=== PATIENT | female | born 1950 | race Caucasian/White ===

== ENCOUNTER 2024-12-04 07:57 | Observation (INO) ==
[~2024-12-04 07:57] MED LIST: KETAMINE HCL ONE; ULTANE GAS IN ONE; XYLOCAINE 2 % (PLAIN) ONE
[2024-12-04] MEDS: NOZIN NASAL SANITIZER TP ONE (08:13)
[2024-12-04] MEDS: LR 1,000 ML IV 1,000 ML IV ONE ×2 (08:13→10:42)
[2024-12-04] MEDS: NS 100 ML IV 100 ML ONE (09:25)
[2024-12-04] MEDS: ANCEF VIAL 1 GRAM ONE (09:25)
[2024-12-04] MEDS: LR 1,000 ML IV 1,300 ML IV PRN (09:30)
[2024-12-04] MEDS: VERSED IVP PRN (09:35)
[2024-12-04] MEDS: ANCEF VIAL 1 GRAM IV PRN (09:37)
[2024-12-04] MEDS: ZOFRAN INJ 4 MG VIAL IVP PRN (09:38)
[2024-12-04] MEDS: PEPCID 20 MG VIAL IVP PRN (09:40)
[2024-12-04] MEDS: REGLAN INJ 10 MG VIAL IVP PRN (09:42)
[2024-12-04] MEDS: FENTANYL VIAL INJ 100 mcg IVP PRN (09:45)
[2024-12-04] MEDS ORDERED: XYLOCAINE 2 % (PLAIN) PRN (09:46)
[2024-12-04] MEDS: PRECEDEX INJ VIAL IVP PRN (09:47)
[2024-12-04] MEDS: OFIRMEV IV 1000 MG VIAL 1,000 MG/100 ML VIAL IV PRN (09:58)
[2024-12-04] MEDS: KETAMINE HCL IV PRN (10:14)
[2024-12-04] MEDS: DIPRIVAN VIAL 200 ML IVP PRN (10:17)
[2024-12-04] MEDS ORDERED: BARHEMSYS INJ IVP PRN (10:21)
[2024-12-04] MEDS ORDERED: ZOFRAN INJ 4 MG VIAL IVP PRN (10:21)
[2024-12-04] MEDS ORDERED: BENADRYL INJ 50 MG VIAL IVP PRN (10:21)
[2024-12-04] MEDS: EPHEDRINE SULFATE INJ IVP PRN (10:28)
[2024-12-04] MEDS: ZEMURON 100 MG VIAL IVP PRN (10:31)
[2024-12-04] MEDS: BRIDION IVP PRN (11:13)
[2024-12-04] MEDS: ROBINUL IVP PRN (11:14)
[2024-12-04] MEDS: BACTROBAN TOPICAL OINT ONE (11:18)
[2024-12-04] MEDS: DECADRON INJ IVP PRN (11:22)
[2024-12-04] MEDS: DILAUDID INJ ONE (12:06)
[2024-12-04] MEDS: DILAUDID INJ IVP PRN (12:08)
[2024-12-04] MEDS ORDERED: TORADOL 30 MG VIAL IVP PRN (12:52)
[2024-12-04] MEDS ORDERED: NORCO 5/325 MG TAB PO PRN (12:52)
[2024-12-04] MEDS: D5 1/2 NS 1,000 ML 1,000 ML IV SCH (13:00)
[2024-12-04] MEDS: D5 1/2 NS 1,000 ML 1,000 ML IV ONE (13:07)
[2024-12-04 13:46] VITALS: BMI 37.2
[2024-12-04] MEDS: DIPRIVAN VIAL 20 ML ONE (14:54)
[2024-12-04] MEDS: BRIDION ONE (14:54)
[2024-12-04] MEDS: DECADRON INJ ONE (14:54)
[2024-12-04] MEDS: REGLAN INJ 10 MG VIAL ONE (14:55)
[2024-12-04] MEDS: PEPCID 20 MG VIAL ONE (14:55)
[2024-12-04] MEDS: OFIRMEV IV 1000 MG VIAL 1,000 MG/100 ML VIAL IV ONE (14:55)
[2024-12-04] MEDS: ZOFRAN INJ 4 MG VIAL ONE (14:55)
[2024-12-04] MEDS: PRECEDEX INJ VIAL ONE (14:55)
[2024-12-04] MEDS: ZEMURON 100 MG VIAL ONE (14:55)
[2024-12-04] MEDS: VERSED ONE (14:56)
[2024-12-04] MEDS: EPHEDRINE SULFATE INJ ONE (14:56)
[2024-12-04] MEDS: ROBINUL ONE (14:56)
[2024-12-04] MEDS: FENTANYL VIAL INJ 100 mcg ONE (14:56)
[2024-12-05] MEDS: ZOFRAN INJ 4 MG VIAL IVP PRN (03:14)
[2024-12-05 03:43] VITALS: RESP 18
[2024-12-05 08:14] VITALS: BP 136/72; PULSE 78; TEMP 97.3; O2SAT 96
[2024-12-05 08:20] LABS: BASOPHILS % (AUTO) 0.5 % (0.2-1.0); HEMATOCRIT 33.3 % (36.0-47.0); HEMOGLOBIN 11.6 g/dL (12.0-16.0); LYMPHOCYTES # (AUTO) 1.8 X10^3/uL (1.3-2.9); LYMPHOCYTES % (AUTO) 18.8 % (21.0-51.0); MEAN CORPUSCULAR HEMOGLOBIN 31.4 pg (27.0-34.0); MEAN CORPUSCULAR HGB CONC 34.9 g/dL (33.0-35.0); MEAN PLATELET VOLUME 9.9 fL (7.4-11.0); MONOCYTES # (AUTO) 0.6 x10^3/uL (0.3-0.8); MONOCYTES % (AUTO) 6.3 % (0.0-13.0); NEUTROPHILS % (AUTO) 74.4 % (42.0-75.0); PLATELET COUNT 233 X10^3/uL (150.0-450.0); RED CELL DISTRIBUTION WIDTH 13.3 % (11.6-16.5); WHITE BLOOD COUNT 9.4 X10^3/uL (3.6-10.0)
[2024-12-05 08:33] LABS: ALANINE AMINOTRANSFERASE 58 Units/L (12-78); ALKALINE PHOSPHATASE 93 Units/L (46-116); ASPARTATE AMINO TRANSFERASE 40 Units/L (15-37); BLOOD UREA NITROGEN 8 mg/dL (7-18); CALCIUM 9.1 mg/dL (8.5-10.1); CARBON DIOXIDE 30.1 mmol/L (21-32); CHLORIDE 94 mmol/L (98-107); COR CA(FOR HYPOALB) 9.9 mg/dL (8.5-10.1); COR NA(FOR HYPERGLY) 132 mmol/L (136-145); CREATININE 0.96 mg/dL (0.55-1.02); GLUCOSE 156 mg/dL (65-99); POTASSIUM 3.5 mmol/L (3.5-5.1); SODIUM 131 mmol/L (136-145); eGFR NON BLACK RACES > 60 (>60)
== END 2024-12-05 09:45 | disposition home or self-care (01) ==
LOC: MED/SURG 07:57 → SURG1 07:57
PROVIDERS: ADMIT Surgery; ATTEND Surgery
DX: K66.0 Peritoneal adhesions (postprocedural) (postinfection); K80.12 Calculus of gallbladder with acute and chronic cholecystitis without obstruction; E87.1 Hypo-osmolality and hyponatremia; E11.65 Type 2 diabetes mellitus with hyperglycemia

== ENCOUNTER 2025-07-01 13:21 | Observation (INO) ==
[2025-07-01 19:08] LABS: MEAN PLATELET VOLUME 10.7 fL (7.4-11.0); RED CELL DISTRIBUTION WIDTH 13.6 % (11.6-16.5); RETICULOCYTE % 0.77 % (0.8-2.2)
[2025-07-01 19:09] VITALS: BMI 34.8
[2025-07-01 19:29] LABS: CREATININE 0.71 mg/dL (0.55-1.02); eGFR NON BLACK RACES > 60 (>60)
[2025-07-01] MEDS: ULTRAM PO SCH (19:38)
[2025-07-01] MEDS: NS 1,000 ML IV 1,000 ML IV SCH (19:39)
[2025-07-01] MEDS: ROCEPHIN VIAL 1 GRAM 1 G in NS 100 ML IV 100 ML IV SCH (19:40)
[2025-07-01 21:05] LABS: BLOOD/HEMOGLOBIN,URINE 1+ (NEGATIVE); LEUKOCYTE ESTERASE ,URINE NEGATIVE (NEGATIVE); NITRITES,URINE NEGATIVE (NEGATIVE)
[2025-07-01 21:07] LABS: APPEARANCE,URINE SLIGHTLY HAZY (CLEAR)
[2025-07-01 21:12] LABS: SQUAMOUS EPITHELIAL CELL,UR NUMEROUS /HPF (NEGATIVE)
[2025-07-02 05:50] LABS: MEAN PLATELET VOLUME 10.6 fL (7.4-11.0); RED CELL DISTRIBUTION WIDTH 13.5 % (11.6-16.5)
[2025-07-02 06:11] LABS: CHOL/HDL RATIO 2.2 (0.0-5.0); COR CA(FOR HYPOALB) 10.5 mg/dL (8.5-10.1); CREATININE 0.61 mg/dL (0.55-1.02); eGFR NON BLACK RACES > 60 (>60)
--- NOTE | 2025-07-02 06:29 | RAD ---
EXAM: CHEST, 1 VIEW HISTORY: CLEMENT; COMPARISON: 12/01/2024 r.br.br.br stable. No acute airspace disease. No pneumothorax or effusion. No acute osseous abnormality. IMPRESSION: No acute cardiopulmonary disease. THIS IS AN ELECTRONICALLY VERIFIED FINAL REPORT 07/02/2025 6:26 AM - Electronically signed by Tan Benitez MD
[2025-07-02] MEDS ORDERED: CONSULT PHARMACY - POTASSIUM & MAGNESIUM XX SCH (07:00)
--- NOTE | 2025-07-02 08:07 | DR.H&P ---
H&P History & Physical for Day of: H&P Date: 07/01/25 Chief Complaint Chief Complaint: severe weakness, multiple falls, uti History of Present Illness History of Present Illness: PT IS 75 WF, DIRECT ADMIT FROM DR SAMANIEGO OFFICE WITH CO SEVERE WEAKNESS, PT NOT AMBULATION WITH ASSISTANCE WITH MULTIPLE FALLS THIS PAST WEEK REQUIRING EMS TO ASSIST PT AFTER FALL. PT HAS HAD INCREASED MUSCLE WEAKNESS AND FAMILY IS CONCERNED ABOUT HER STAYING ALONE. WE HAVE DISCUSSED REHAB THERAPY FOR PHYSICAL THERAPY. PT HAS HAD A UTI ON OUTPT, BUT HER SYMPTOMS OF DYSURIA HAD BEEN IMPROVING. PT ADMITTED FOR TREATMENT AND EVALUATION OF ACUTE ILLNESS Past Medical History Past Medical History: Arthritis, Dyslipidemia and Hypertension Past Surgical History Surgical History: Cholecystectomy, Hysterectomy and Ortho Surgery Family History Family Medical History: [place] and Coronary Artery Disease Medications Home Medications: Home Medications Medication Instructions Recorded Confirmed Type donepezil 5 mg tablet 5 mg PO DAILY 11/26/2404/29 History estradiol 0.5 mg tablet 5 mg PO DAILY 11/26/2404/29 History famotidine 40 mg tablet 40 mg PO DAILY 11/26/2404/13 History levocetirizine 5 mg tablet 5 mg PO DAILY 11/26/2404/13 History lisinopril 20 1 tab PO DAILY 11/26/2404/13 History mg-hydrochlorothiazide 25 mg tablet mirabegron 25 mg tablet,extended 25 mg PO DAILY 04/29/25 History release 24 hr (Myrbetriq) paroxetine HCl 20 mg tablet 20 mg PO DAILY 11/26/24 History potassium chloride 10 mEq 10 meq PO DAILY 11/26/24 History tablet,extended release atorvastatin 10 mg tablet 10 mg PO DAILY 12/04/2404/13 History tramadol 50 mg tablet 50 mg PO BID 12/04/24 History Allergies Allergies Allergy/AdvReac Type Severity Reaction Status Date / Time No Known Allergies Allergy Verified 04/29/25 12:55 Labs 07/02/25 05:31 07/02/25 05:31 Review of Systems Constitutional: Weakness Eyes: No Symptoms Reported ENT: No Symptoms Reported Respiratory: Shortness of Breath Cardiovascular: No Symptoms Reported and Edema Gastrointestinal: Nausea and Other (POOR APPETITE) Genitourinary: Frequency and Incontinence Musculoskeletal: Back Pain, Leg Pain and Foot Pain Skin: Bruising Neurological: Weakness Oriented: Normal Eyes: Normal Ear: Normal Nose: Normal Throat: Dry Respiratory: RLL Diminished and LLL Diminished Cardiovascular: Normal Palpation: Normal Tenderness: Normal Skin: Decreased Turgur Musculoskeletal: Tender and Motor Deficit Psychiatric: Depression Mood Description: Depressed Affect: Depressed Speech Pattern: Clear and Appropriate Assessment/Plan (1) UTI (urinary tract infection): Status: Acute Plan: ADMIT, IV HYDRATION BP CONTROL, PT OT CONSULT VERIFY HOME MEDICATIONS IV ROCEPHIN (2) Multiple falls: Status: Acute (3) Hypertension: Status: Chronic (4) Hypertension, uncontrolled: Status: Acute (5) Weakness: Status: Acute
[2025-07-02] MEDS ORDERED: PHARMACY CONSULT XX SCH ×2 (09:00→10:00)
[2025-07-02] MEDS: MYRBETRIQ ER TAB 25 MG PO SCH (09:14)
[2025-07-02] MEDS: PAXIL PO SCH (09:15)
[2025-07-02] MEDS: ESTRACE PO SCH (09:15)
[2025-07-02] MEDS: ZESTORETIC 20/25 MG PO SCH (09:15)
[2025-07-02] MEDS: PEPCID TAB 40 MG PO SCH (09:15)
[2025-07-02] MEDS: K-DUR TAB 20 MEQ PO SCH (09:15)
[2025-07-02] MEDS: ARICEPT TAB 5 MG PO SCH (09:16)
[2025-07-02] MEDS: KLOR-CON 10 MEQ TAB PO SCH (09:16)
[2025-07-02] MEDS: MOBIC TAB 15 MG PO SCH (09:16)
[2025-07-02] MEDS: LOVENOX INJ 40 MG SYR SC SCH (09:56)
[2025-07-02] MEDS: NS 100 ML IV 100 ML with VENOFER 400 MG IV ONE (09:56)
[2025-07-02] MEDS: ZOFRAN INJ 4 MG VIAL IVP PRN (17:34)
[2025-07-02] MEDS: LIPITOR TAB 10 MG PO SCH (20:33)
[2025-07-03 06:12] LABS: MEAN PLATELET VOLUME 10.4 fL (7.4-11.0); RED CELL DISTRIBUTION WIDTH 13.8 % (11.6-16.5)
[2025-07-03 06:23] LABS: COR CA(FOR HYPOALB) 11.1 mg/dL (8.5-10.1); CREATININE 0.72 mg/dL (0.55-1.02); eGFR NON BLACK RACES > 60 (>60)
[2025-07-03] MEDS ORDERED: CONSULT PHARMACY - POTASSIUM & MAGNESIUM XX SCH (07:00)
[2025-07-03] MEDS: K-DUR TAB 20 MEQ PO SCH (09:14)
[2025-07-03] MEDS: MAG-OX TAB PO SCH (09:14)
--- NOTE | 2025-07-03 11:51 | RAD ---
EXAM: LUMBAR SPINE, COMPLETE HISTORY: fall; COMPARISON: None .br.br.br.br spinal degenerative changes. No acute fracture in the visualized spine. No acute soft tissue abnormality. IMPRESSION: No acute fracture. THIS IS AN ELECTRONICALLY VERIFIED FINAL REPORT 07/03/2025 11:48 AM - Electronically signed by Tan Benitez MD
[2025-07-03] MEDS: MAALOX or MYLANTA PO PRN (18:24)
[2025-07-04 05:40] LABS: MEAN PLATELET VOLUME 10.7 fL (7.4-11.0); RED CELL DISTRIBUTION WIDTH 13.5 % (11.6-16.5)
[2025-07-04 05:53] LABS: COR CA(FOR HYPOALB) 11.1 mg/dL (8.5-10.1); CREATININE 0.85 mg/dL (0.55-1.02); eGFR NON BLACK RACES > 60 (>60)
[2025-07-04] MEDS ORDERED: CONSULT PHARMACY - POTASSIUM & MAGNESIUM XX SCH (07:00)
[2025-07-04] MEDS: K-DUR TAB 20 MEQ PO SCH (09:55)
[2025-07-04] MEDS: COLACE CAP 100 MG PO SCH (20:20)
[2025-07-05 04:06] VITALS: PULSE 60; RESP 18; TEMP 97.9
[2025-07-05 05:52] LABS: MEAN PLATELET VOLUME 10.7 fL (7.4-11.0); RED CELL DISTRIBUTION WIDTH 13.6 % (11.6-16.5)
[2025-07-05 06:13] LABS: COR CA(FOR HYPOALB) 11.0 mg/dL (8.5-10.1); CREATININE 0.61 mg/dL (0.55-1.02); eGFR NON BLACK RACES > 60 (>60)
[2025-07-05] MEDS: MILK OF MAGNESIA PO SCH (08:22)
[2025-07-05 10:29] VITALS: BP 164/82; O2SAT 94
== END 2025-07-05 16:35 ==
LOC: MED/SURG
PROVIDERS: ADMIT Internal Medicine; ATTEND Internal Medicine
DX: R06.09 Other forms of dyspnea; M62.59 Muscle wasting and atrophy, not elsewhere classified, multiple sites; W18.39XA Other fall on same level, initial encounter; M19.90 Unspecified osteoarthritis, unspecified site; I10 Essential (primary) hypertension; E78.5 Hyperlipidemia, unspecified; R26.89 Other abnormalities of gait and mobility; G62.89 Other specified polyneuropathies; K21.9 Gastro-esophageal reflux disease without esophagitis; M54.59 Other low back pain; Z79.899 Other long term (current) drug therapy; M62.81 Muscle weakness (generalized); N39.0 Urinary tract infection, site not specified; E61.1 Iron deficiency; F32.89 Other specified depressive episodes; R29.6 Repeated falls; R06.02 Shortness of breath